=== PATIENT | male | born 1940 | race Caucasian/White ===

== ENCOUNTER 2024-02-13 01:58 | Inpatient (IN) | payer MEDICARE, BC ==
[~2024-02-13] VITALS: Ht 180.3 cm; Wt 80.5 kg
[2024-02-13 02:09] LABS: BASOPHILS % (AUTO) 0.6 % (0-1); EOSINOPHILS # (AUTO) 0.3 X10'3 (0-0.9); EOSINOPHILS % (AUTO) 4.1 % (0-6); HEMATOCRIT 40.8 % (42.0-52.0); HEMOGLOBIN 13.5 g/dl (14.0-17.9); LYMPHOCYTES # (AUTO) 1.9 X10'3 (1.1-4.8); LYMPHOCYTES % (AUTO) 26.9 % (21-51); MEAN CORPUSCULAR HEMOGLOBIN 30.8 PG (27.0-31.0); MEAN CORPUSCULAR HGB CONC 33.2 g/dL (33.0-36.5); MEAN CORPUSCULAR VOLUME 92.7 FL (78-98); MEAN PLATELET VOLUME 8.9 FL (7.4-10.4); MONOCYTES # (AUTO) 0.7 X10'3 (0-0.9); MONOCYTES % (AUTO) 10.6 % (2-12); NEUTROPHILS % (AUTO) 57.8 % (42-75); PLATELET COUNT 202 X10'3 (140-440); RED CELL DISTRIBUTION WIDTH 14.4 % (11.5-14.5)
[2024-02-13 02:22] LABS: ALANINE AMINOTRANSFERASE 22 U/L (12-78); ALBUMIN 4.1 G/DL (3.4-5.0); ALBUMIN/GLOBULIN RATIO 1.3 (1.1-1.5); ALKALINE PHOSPHATASE 70 IU/L (46-116); ANION GAP 8 (8-16); ASPARTATE AMINO TRANSFERASE 19 U/L (10-37); BILIRUBIN,TOTAL 0.3 MG/DL (0.1-1.0); BLOOD UREA NITROGEN 24 MG/DL (7-18); CALCIUM 9.4 MG/DL (8.5-10.1); CHLORIDE 105 MMOL/L (99-107); CREATININE 1.26 MG/DL (0.60-1.10); GLUCOSE 109 MG/DL (70-104); POTASSIUM 4.2 MMOL/L (3.5-5.1); SODIUM 141 MMOL/L (135-145); TOTAL CARBON DIOXIDE 27.8 MMOL/L (24-32); TOTAL PROTEIN 7.3 G/DL (6.4-8.2); eCRCL 47 ML/MIN; eGFR 55 ML/MIN
[2024-02-13 02:29] LABS: PRO BRAIN NATRIURETIC PEPTIDE 81 PG/ML (0-450)
[2024-02-13] MEDS ORDERED: LEVO88CA4 PO (03:23)
[2024-02-13] MEDS ORDERED: BUDE10.22 INH (03:23)
[2024-02-13] MEDS ORDERED: ALBU8HFA INH (03:23)
[2024-02-13] MEDS ORDERED: MUPI15CR12 TOP (03:23)
[2024-02-13] MEDS ORDERED: MONT-40 PO (03:23)
[2024-02-13] MEDS ORDERED: CELE-193 PO (03:23)
[2024-02-13] MEDS ORDERED: FINA1TAB13 PO (03:23)
[2024-02-13] MEDS ORDERED: chlordiazePOXIDE 25mg capsule PO ONE (03:35)
[2024-02-13] MEDS ORDERED: morphine 2 MG/ML inj. syringe IV PRN (03:45)
[2024-02-13] MEDS ORDERED: potassium Cl 20 mEq SR tablet PO PRN ×2 (03:45)
[2024-02-13] MEDS ORDERED: acetaminophen 325mg tablet PO PRN ×2 (03:45)
[2024-02-13] MEDS ORDERED: potassium Cl 40MEQ/1/2NS 520ml 520 ML IV PRN (03:45)
[2024-02-13] MEDS ORDERED: magnesium sulf-water 4G/100mL 100 ML IV PRN (03:45)
[2024-02-13] MEDS ORDERED: mag hydrox/Alum hydrox/simeth 30ml oral suspension PO PRN (03:45)
[2024-02-13] MEDS ORDERED: magnesium sulf-water 2g/50mL 50 ML IV PRN (03:45)
[2024-02-13] MEDS ORDERED: magnesium Cl slow-release 64mg tablet PO PRN (03:45)
[2024-02-13] MEDS ORDERED: ondansetron/PF 4mg/2ml inj IV PRN (03:45)
[2024-02-13] MEDS ORDERED: magnesium hydroxide 30ml (MOM) UD suspension PO PRN (03:45)
[2024-02-13] MEDS ORDERED: HYDROcodone/acetaminophen 5mg/325mg tablet PO PRN (03:45)
[2024-02-13] MEDS ORDERED: nitroGLYCERIN 0.4mg SUBLingual tab SL PRN ×2 (03:50→03:55)
[2024-02-13] MEDS ORDERED: aminophylline 250mg/10ml inj. IV PRN (03:50)
[2024-02-13] MEDS ORDERED: regadenoson 0.4mg/5ml syringe IV PRN (03:50)
[2024-02-13] MEDS ORDERED: metoprolol tartrate 1mg/ml inj IV PRN (03:50)
[2024-02-13] MEDS ORDERED: albuterol 2.5 MG/3 ML nebule NEB PRN (04:10)
[2024-02-13 04:17] LABS: HEMOGLOBIN A1C 6.1 % (4.5-6.2)
[2024-02-13 04:28] LABS: MAGNESIUM 2.4 MG/DL (1.5-2.4); THYROID STIMULATING HORMONE 7.23 ulU/ml (0.34-4.50)
[2024-02-13 06:01] LABS: POTASSIUM 4.2 MMOL/L (3.5-5.1)
[2024-02-13] MEDS: K and/or MAG REPLACEMENT MC SCH (07:12)
[2024-02-13] MEDS: heparin, porcine 5000 units/ml vial SQ SCH (07:18)
[2024-02-13] MEDS: levoTHYROXINE 88mcg tablet PO SCH (07:19)
[2024-02-13] MEDS: aspirin 81mg, enteric-coated 1 TAB TABLET.DR PO SCH (07:19)
[2024-02-13] MEDS: pantoprazole 40mg Tablet.DR PO SCH (07:19)
[2024-02-13] MEDS: montelukast 10mg tablet PO SCH (07:19)
[2024-02-13] MEDS: mupirocin 2% cream 15gm TP SCH (07:57)
[2024-02-13] MEDS: budesonide 0.5mg/2ml UD nebule IH SCH (08:10)
[2024-02-13] MEDS: albuterol 2.5 MG/3 ML nebule NEB SCH (08:11)
[2024-02-13 09:41] LABS: CHOL/HDL RATIO 4.3 (0.00-4.99); CHOLESTEROL 193 MG/DL (0-200); FREE T4 (FREE THYROXINE) 0.67 NG/DL (0.73-1.40); HDL CHOLESTEROL 45 MG/DL (35-60); LDL CHOLESTEROL 120 MG/DL (50-100); TRIGLYCERIDES 117 MG/DL (20-135)
[2024-02-13] MEDS: atorvastatin 20mg tablet PO SCH (17:35)
[2024-02-13 20:00] VITALS: RESP 19; O2SAT 96
[2024-02-13 20:30] VITALS: BP 132/76; PULSE 51; RESP 16; TEMP 97.1; O2SAT 97
[2024-02-13 22:00] VITALS: BP 128/58; PULSE 52; RESP 19; TEMP 97.3; O2SAT 95
[2024-02-13 23:28] VITALS: PULSE 59; RESP 15; O2SAT 96
[2024-02-14] VITALS (13 sets, daily range): BP systolic 115–153; BP diastolic 70–78; PULSE 50–100; RESP 15–20; TEMP 97.3–97.5; O2SAT 95–99
[2024-02-14 06:15] LABS: BASOPHILS % (AUTO) 0.8 % (0-1); EOSINOPHILS # (AUTO) 0.3 X10'3 (0-0.9); EOSINOPHILS % (AUTO) 5.8 % (0-6); HEMATOCRIT 41.8 % (42.0-52.0); HEMOGLOBIN 13.8 g/dl (14.0-17.9); LYMPHOCYTES # (AUTO) 1.5 X10'3 (1.1-4.8); LYMPHOCYTES % (AUTO) 26.9 % (21-51); MEAN CORPUSCULAR HEMOGLOBIN 30.4 PG (27.0-31.0); MEAN CORPUSCULAR VOLUME 92.4 FL (78-98); MEAN PLATELET VOLUME 9.3 FL (7.4-10.4); MONOCYTES # (AUTO) 0.5 X10'3 (0-0.9); MONOCYTES % (AUTO) 9.6 % (2-12); NEUTROPHILS # (AUTO) 3.2 X10'3 (1.8-7.7); NEUTROPHILS % (AUTO) 56.9 % (42-75); PLATELET COUNT 179 X10'3 (140-440); RED BLOOD COUNT 4.52 X10'6 (4.70-6.10); RED CELL DISTRIBUTION WIDTH 14.3 % (11.5-14.5); WHITE BLOOD COUNT 5.6 X10'3 (4.5-11.0)
[2024-02-14 06:17] LABS: PROTHROMBIN TIME 10.8 SECONDS (9.0-12.0)
[2024-02-14 06:22] LABS: ALBUMIN 3.5 G/DL (3.4-5.0); ANION GAP 5 (8-16); BLOOD UREA NITROGEN 23 MG/DL (7-18); BUN/CREATININE RATIO 20.4 (10.0-20.0); CALCIUM 9.1 MG/DL (8.5-10.1); CHLORIDE 108 MMOL/L (99-107); CHOL/HDL RATIO 5.2 (0.00-4.99); CHOLESTEROL 198 MG/DL (0-200); CREATININE 1.13 MG/DL (0.60-1.10); GLUCOSE 102 MG/DL (70-104); HDL CHOLESTEROL 38 MG/DL (35-60); LDL CHOLESTEROL 113 MG/DL (50-100); MAGNESIUM 2.4 MG/DL (1.5-2.4); PHOSPHORUS 3.6 MG/DL (2.3-4.5); POTASSIUM 4.1 MMOL/L (3.5-5.1); SODIUM 140 MMOL/L (135-145); TOTAL CARBON DIOXIDE 26.8 MMOL/L (24-32); TRIGLYCERIDES 217 MG/DL (20-135); eCRCL 53 ML/MIN; eGFR 62 ML/MIN
[2024-02-14] MEDS: regadenoson 0.4mg/5ml syringe IV ONE (10:07)
[2024-02-14] MEDS ORDERED: ATOR20TA66 PO (14:27)
== END 2024-02-14 15:45 | disposition home or self-care (01) | DRG 313 ==
LOC: ER 01:59 → ED HOLD 03:49 → UNDOADMIN 03:49 → ED HOLD 04:28 → EDBEDREQ 18:31 → PCU 3S 20:35 → UNDODISIN 02-14 13:01
PROVIDERS: ADMIT Surgery Surgical Critical Care; ATTEND Internal Medicine
PROC: 4A02XM4 Measurement of Cardiac Total Activity, External Approach (ICD-10-PCS; principal; 2024-02-14)
PROC: 3E073KZ Introduction of Other Diagnostic Substance into Coronary Artery, Percutaneous Approach (ICD-10-PCS; 2024-02-14)
DX: R07.89 Other chest pain (principal); J44.9 Chronic obstructive pulmonary disease, unspecified; Z91.013 Allergy to seafood; Z79.899 Other long term (current) drug therapy; E03.9 Hypothyroidism, unspecified; E78.5 Hyperlipidemia, unspecified
CPT/HCPCS: 36415; 71045; 78452; 80048; 80053; 80061; 83036; 83735; 83880; 84100; 84132; 84439; 84443; 84484; 85025; 85610; 87081; 93005; 93017; 93306; 94760; 99285; A9500; G0378; J1644; J2785